=== PATIENT | male | born 1990 | race Caucasian/White ===

== ENCOUNTER 2017-08-10 01:46 | Emergency (ER) | payer OTHER ==
[2017-08-10 02:06] VITALS: BP 146/84; PULSE 125; RESP 18; TEMP 98.5; O2SAT 98
--- NOTE | 2017-08-10 02:23 | PD ---
HPI Chief Complaint: Psychiatric Symptoms Time Seen by Provider: 02:06 Travel History International Travel<30 days: No Contact w/Intl Traveler<30days: No History of Present Illness HPI Patient comes emergency Department after being cleared at different facility for psychiatric evaluation. Patient denies any complaints or concerns other than not wanting to be here. Patient denies any suicidal or homicidal ideations. Denies any chest pain, shortness of breath, nausea, vomiting, fevers , or loss change in bowel or bladder. Denies anything making symptoms better or worse. PFSH Past Medical History Blood Disorders: No Anxiety: Yes Cancer: No Cardiovascular Problems: No Diabetes: No Endocrine: No Gastrointestinal Disorders: No Genitourinary: No Immune Disorder: No Implanted Vascular Access Dvce: No Musculoskeletal: No Neurologic: No Psychiatric: Yes Reproductive: No Respiratory: No Past Surgical History Other Surgery: Yes Social History Alcohol Use: Yes Tobacco Use: No Substance Use: Yes (MARIJUANA) Allergies-Medications (Allergen,Severity, Reaction): Coded Allergies: No Known Allergies (Unverified Adverse Reaction, Unknown, 08/10/17) Reported Meds & Prescriptions Reported Meds & Active Scripts Active No Active Prescriptions or Reported Medications Review of Systems Except as stated in HPI: all other systems reviewed are Neg Physical Exam Narrative GENERAL: Well-developed, well nourished, in no acute distress, and non-ill appearing. SKIN: Focused skin assessment warm and dry. HEAD: Atraumatic. Normocephalic. EYES: Pupils equal and round. EOMI. No scleral icterus. No injection or drainage. ENT: No nasal bleeding or discharge. Mucous membranes pink and moist. NECK: Trachea midline. Supple. No nuclear rigidity. CARDIOVASCULAR: Regular rate and rhythm. No murmur appreciated. RESPIRATORY: No accessory muscle use. No respiratory distress. Clear to auscultation. Breath sounds equal bilaterally. MUSCULOSKELETAL: No obvious deformities. No clubbing. No cyanosis. No edema. Full range of motion. NEUROLOGICAL: Awake and alert. No obvious cranial nerve deficits. Motor grossly within normal limits. Normal speech. PSYCHIATRIC: Agitated. Data Data Last Documented VS Vital Signs Date Time Temp Pulse Resp B/P (MAP) Pulse Ox O2 Delivery O2 Flow Rate FiO2 08/10/17 02:06 98.5 125 18 146/84 (104) 98 Room Air Orders Orders Psych Screen (11/23/17 02:17) MDM Medical Decision Making Medical Screen Exam Complete: Yes Emergency Medical Condition: Yes Differential Diagnosis Homicidal, suicidal, alcohol intoxication, substance abuse, nonspecific mood disorder Narrative Course Patient was seen and examined. Patient medically cleared for further treatment and evaluation by psych. Final disposition per psych. Diagnosis Primary Impression: Medical clearance for psychiatric admission Scripts No Active Prescriptions or Reported Meds Condition: Stable Rajiv Basurto Aug 10, 2017 02:23
[2017-08-10 03:00] VITALS: BP 92/51; PULSE 105; RESP 18; TEMP 97.1; O2SAT 98
[2017-08-10 06:23] VITALS: BP 99/58; PULSE 95; RESP 18; TEMP 98.6; O2SAT 99
--- NOTE | 2017-08-10 11:19 | PD ---
History of Present Illness Chief Complaint: Psychiatric Symptoms Time Seen by Provider: 11:15 Travel History International Travel<30 Days: No Contact w/Intl Traveler<30days: No Known affected area: No Legal Status Legal Status: Rodriguez Act Rodriguez Act Signed By: Corey Vincent History of Present Illness: 27-year-old male transferred to this facility under a Rodriguez act last night. Patient's alcohol level was over 300 last night and he is now sober. patient denies any suicidal or homicidal ideation, plan or intent. He is somewhat distressed because he was Rodriguez acted last night and does not feel he was ever suicidal or homicidal. However, this physician spoke to the transferring physician last night and patient was very belligerent. At this point, patient is calm and cooperative. He demonstrates no psychotic thinking, no clinical evidence of intoxication and his cognition is intact. He is verbally rashmi for safety and he is competent to do so. PFSH Past Medical History Blood Disorders: No Anxiety: Yes Cancer: No Cardiovascular Problems: No Diabetes: No Endocrine: No Gastrointestinal Disorders: No Genitourinary: No Immune Disorder: No Implanted Vascular Access Dvce: No Musculoskeletal: No Neurologic: No Psychiatric: Yes Reproductive: No Respiratory: No Past Surgical History Other Surgery: Yes Psychiatric History Psychiatric History Hx Psychiatric Treatment: NO C PSYCH HISTORY History of Inpatient Treatment: No Guns or firearms in home: No Social History Hx Alcohol Use: Yes Hx Tobacco Use: No Hx Substance Use: Yes Substance Use Type: Alcohol Hx of Substance Use Treatment: Yes Allergies-Medications (Allergen,Severity, Reaction): Coded Allergies: No Known Allergies (Unverified Adverse Reaction, Unknown, 08/10/17) Reported Meds & Prescriptions Reported Meds & Active Scripts Active No Active Prescriptions or Reported Medications Review of Systems Except as stated in HPI: all other systems reviewed are Neg Mental Status Examination Appearance: Appropriate Consciousness: Alert Orientation: x4 Motor Activity: Normal gait Speech: Unremarkable Language: Adequate Fund of Knowledge: Adequate Attention and Concentration: Adequate Memory: Unremarkable Mood: Appropriate Affect: Appropriate Thought Process & Associations: Intact Thought Content: Appropriate Hallucination Type: None Delusion Type: None Suicidal Ideation: No Suicidal Plan: No Suicidal Intention: No Homicidal Ideation: No Homicidal Plan: No Homicidal Intention: No Insight: Adequate Judgment: Adequate MDM Medical Decision Making Medical Record Reviewed: Yes Assessment/Plan Patient interviewed at bedside. Medical record reviewed. Case discussed with nurse, Karolyn. Patient does not meet criteria for Rodriguez act or involuntary psychiatric hospitalization. He is being referred [facility] for further treatment of alcohol abuse. Orders Orders Psych Screen (08/10/17 02:17) Diet Regular Basic (08/10/17 Breakfast) Results Vital Signs Date Time Temp Pulse Resp B/P (MAP) Pulse Ox O2 Delivery O2 Flow Rate FiO2 08/10/17 06:23 98.6 95 18 99/58 (72) 99 Room Air 08/10/17 03:00 97.1 105 18 92/51 (65) 98 Room Air 08/10/17 02:06 98.5 125 18 146/84 (104) 98 Room Air Diagnosis Primary Impression: Alcohol abuse Prescriptions No Active Prescriptions or Reported Meds Condition: Stable Venkata Gordon MD Aug 10, 2017 11:19
--- NOTE | 2017-08-10 13:15 | PD ---
Physical Exam Time Seen by Provider: 13:[address] Gordon has evaluated patient, lifted the Rodriguez act and cleared the patient for discharge. Data Data Last Documented VS Vital Signs Date Time Temp Pulse Resp B/P (MAP) Pulse Ox O2 Delivery O2 Flow Rate FiO2 08/10/17 06:23 98.6 95 18 99/58 (72) 99 Room Air Orders Orders Psych Screen (08/10/17 02:17) Diet Regular Basic (08/10/17 Breakfast) Diet Regular Basic (08/10/17 Lunch) MDM Supervised Visit with [facility]: No Narrative Course Dr. Gordon has evaluated patient, lifted the Rodriguez act and cleared the patient for discharge.. Patient contracts safety. Denies suicidal or homicidal ideations. Patient will be provided community resource packet to [facility] for follow-up. Has friends and family for support. Patient was medically cleared by alternate provider prior to psych screening. Patient has been evaluated by psychiatry and and is now cleared for discharge. Diagnosis Primary Impression: Alcohol abuse Referrals: [facility] (Out patient) [facility] Primary Care Physician Psychiatrist [facility] Patient Instructions: Abuse of Alcohol (ED), Alcohol Dependence (ED), Alcohol Intoxication (ED), General Instructions Additional Instruction: Contract safety to your self and others Stop drinking alcohol Follow-up with alcoholics anonymous Follow-up with psychiatry Follow-up with primary care provider Follow-up with [facility] Return to the emergency department immediately with worsening of symptoms Med/Other Pt SpecificInfo: No Change to Meds, No Meds Exist/No RX given Scripts No Active Prescriptions or Reported Meds Disposition: 01 DISCHARGE HOME Condition: Stable Mena Pettit Aug 10, 2017 13:14
== END 2017-08-10 14:05 | disposition home or self-care (01) ==
LOC: NEPJ 01:46
DX: F10.10 Alcohol abuse, uncomplicated (principal); F41.9 Anxiety disorder, unspecified
CPT/HCPCS: 99284